=== PATIENT | female | born 1980 | race Caucasian/White ===

== ENCOUNTER 2018-12-09 20:02 | Emergency (ER) | payer SELFPAY ==
[~2018-12-09] VITALS: Ht 157.5 cm; Wt 111.1 kg
[2018-12-09 20:17] VITALS: Ht 157.5 cm; Wt 111.1 kg
[2018-12-09 23:00] VITALS: BP 165/95
== END 2018-12-09 23:00 | disposition home or self-care (01) ==
LOC: ED 20:02
DX: S16.1XXA Strain of muscle, fascia and tendon at neck level, initial encounter (principal); E11.9 Type 2 diabetes mellitus without complications; M19.90 Unspecified osteoarthritis, unspecified site; M79.10 Myalgia, unspecified site; Z88.0 Allergy status to penicillin; V49.9XXA Car occupant (driver) (passenger) injured in unspecified traffic accident, initial encounter; Y93.89 Activity, other specified; Y92.89 Other specified places as the place of occurrence of the external cause; Y99.8 Other external cause status
CPT/HCPCS: J1885